=== PATIENT | female | born 1995 | race Caucasian/White ===

== ENCOUNTER 2017-09-25 20:17 | Emergency (ER) | payer SELFPAY ==
[~2017-09-25] VITALS: Ht 157.5 cm; Wt 59.1 kg
[~2017-09-25 20:17] MED LIST: NO HOME MEDICATIONS
[2017-09-25 20:20] VITALS: TEMP 100.4
[2017-09-25 21:15] LABS: INFLUENZA A NEGATIVE; INFLUENZA B NEGATIVE
[2017-09-25 22:13] VITALS: BP 105/53; PULSE 113
== END 2017-09-25 22:38 | disposition home or self-care (01) ==
LOC: COL.ER 20:17
PROVIDERS: Nurse Practitioner
DX: J98.8 Other specified respiratory disorders (principal); F17.210 Nicotine dependence, cigarettes, uncomplicated

== ENCOUNTER 2017-10-23 09:57 | Emergency (ER) | payer SELFPAY ==
[~2017-10-23] VITALS: Ht 157.5 cm; Wt 59.1 kg
[2017-10-23 10:05] VITALS: BP 127/78; TEMP 98.5
[2017-10-23] MEDS ORDERED: FLAGYL500 MG PO (11:37)
[2017-10-23 12:53] VITALS: PULSE 88
== END 2017-10-23 12:53 | disposition home or self-care (01) ==
LOC: COL.ER 09:57
DX: Z11.3 Encounter for screening for infections with a predominantly sexual mode of transmission (principal)
CPT/HCPCS: J0696